=== PATIENT | male | born 1985 | race Caucasian/White ===

== ENCOUNTER → 2019-07-15 | Emergency (ER) | payer OTHER ==
[~2019-07-15] VITALS: Ht 167.6 cm; Wt 99.8 kg
[~2019-07-15] MED LIST: TOPROL XL25 M1
== END | disposition home or self-care (01) ==
LOC: ER 15:32
DX: I16.0 Hypertensive urgency (principal); I10 Essential (primary) hypertension; F06.4 Anxiety disorder due to known physiological condition